=== PATIENT | female | born 1950 | race Caucasian/White ===

== ENCOUNTER 2017-09-18 22:55 | Emergency (ER) | payer MEDICARE, BC ==
[~2017-09-18] VITALS: Ht 157.5 cm; Wt 76.0 kg
[2017-09-18 23:20] VITALS: BP 157/92
== END 2017-09-19 00:36 | disposition home or self-care (01) ==
LOC: ER 22:56
DX: T16.2XXA Foreign body in left ear, initial encounter (principal); H61.23 Impacted cerumen, bilateral; I10 Essential (primary) hypertension; E03.9 Hypothyroidism, unspecified; Z90.710 Acquired absence of both cervix and uterus; W45.8XXA Other foreign body or object entering through skin, initial encounter; Y93.89 Activity, other specified; Y92.89 Other specified places as the place of occurrence of the external cause; Y99.8 Other external cause status
CPT/HCPCS: 69209; 99284

== ENCOUNTER 2018-10-12 22:55 | Emergency (ER) | payer MEDICARE, BC ==
[~2018-10-12] VITALS: Ht 152.4 cm; Wt 67.5 kg
[2018-10-12 23:01] VITALS: BP 170/88
[2018-10-12] MEDS ORDERED: AMOX-422 PO (23:18)
[2018-10-12] MEDS ORDERED: HYDR-4383 PO (23:18)
[2018-10-12] MEDS ORDERED: ketorolac tromethamine 15mg/ml inj. IM ONE (23:20)
[2018-10-12] MEDS ORDERED: amox tr/potassium clavulanate 500mg/125mg TAB PO SCH (23:20)
== END 2018-10-12 23:57 | disposition home or self-care (01) ==
LOC: ER 22:55
DX: K02.9 Dental caries, unspecified (principal); I10 Essential (primary) hypertension; E03.9 Hypothyroidism, unspecified; F17.200 Nicotine dependence, unspecified, uncomplicated; Z90.710 Acquired absence of both cervix and uterus; Z79.899 Other long term (current) drug therapy
CPT/HCPCS: 96372; 99283; J1885

== ENCOUNTER 2021-05-13 18:32 | Emergency (ER) | payer MEDICARE, BC ==
[~2021-05-13] VITALS: Ht 157.5 cm; Wt 72.6 kg
[~2021-05-13 18:32] MED LIST: HYDR-4383 PO
[2021-05-13 19:07] VITALS: BP 150/68
[2021-05-13] MEDS ORDERED: CEPH250T PO (21:51)
[2021-05-13] MEDS ORDERED: DOXY100C76 PO (21:51)
== END 2021-05-13 21:58 | disposition home or self-care (01) ==
LOC: ER 18:33
DX: L02.818 Cutaneous abscess of other sites (principal); I10 Essential (primary) hypertension; E03.9 Hypothyroidism, unspecified; Z91.040 Latex allergy status; Z98.890 Other specified postprocedural states; Z79.2 Long term (current) use of antibiotics; Z79.899 Other long term (current) drug therapy
CPT/HCPCS: 10060; 90471; 99283

== ENCOUNTER 2021-05-17 15:21 | Emergency (ER) | payer MEDICARE, BC ==
[~2021-05-17] VITALS: Ht 157.5 cm; Wt 77.3 kg
[~2021-05-17 15:21] MED LIST changes: +CEPH250T PO; +DOXY100C76 PO
[2021-05-17 16:17] VITALS: BP 166/85
== END 2021-05-17 16:05 | disposition home or self-care (01) ==
LOC: ER 15:22
DX: M54.6 Pain in thoracic spine (principal); L02.212 Cutaneous abscess of back [any part, except buttock and flank]; I10 Essential (primary) hypertension; E03.9 Hypothyroidism, unspecified; Z98.891 History of uterine scar from previous surgery; Z90.710 Acquired absence of both cervix and uterus; Z88.2 Allergy status to sulfonamides; Z79.2 Long term (current) use of antibiotics; Z79.899 Other long term (current) drug therapy
CPT/HCPCS: 99281

== ENCOUNTER 2022-08-11 16:37 | Emergency (ER) | payer MEDICARE, BC ==
[~2022-08-11] VITALS: Ht 157.5 cm; Wt 79.0 kg
[~2022-08-11 16:37] MED LIST changes: -CEPH250T PO; -DOXY100C76 PO
[2022-08-11 16:39] VITALS: BP 195/90
[2022-08-11] MEDS ORDERED: CEPH250T PO (18:50)
== END 2022-08-11 19:00 | disposition home or self-care (01) ==
LOC: ER 16:38
DX: L03.011 Cellulitis of right finger (principal); I10 Essential (primary) hypertension; E03.9 Hypothyroidism, unspecified; Z90.710 Acquired absence of both cervix and uterus; Z98.890 Other specified postprocedural states; Z88.2 Allergy status to sulfonamides; Z79.899 Other long term (current) drug therapy
CPT/HCPCS: 10060; 73140; 99283